=== PATIENT | male | born 1960 | race Hispanic/Latino ===

== ENCOUNTER 2018-09-21 05:45 | Day surgery (SDC) | payer OTHER ==
[~2018-09-21] VITALS: Ht 170.2 cm; Wt 81.7 kg
--- NOTE | ~2018-09-21 | OR ---
[facility] [place] [facility] [address], [place] [address] Draft DATE OF OPERATION: 09/21/2018 SURGEON: Fareed Harris MD PREOPERATIVE DIAGNOSIS: Rotator cuff tear of left shoulder with biceps tendinosis. POSTOPERATIVE DIAGNOSIS: Rotator cuff tear of left shoulder with biceps tendinosis. PROCEDURE: Left shoulder arthroscopy with subacromial decompression, double row rotator cuff repair and mini open biceps tenodesis with a Hosmer screw. ANESTHESIA: General. SPECIMENS AND COMPLICATIONS: There were no specimens or complications. TOURNIQUET: Not used. BLOOD LOSS: Minimal. WHAT WAS DONE: The patient was taken to the operating room. After anesthesia was induced and the airway secured, the patient was positioned prepped and draped in a modified beach chair position. Left shoulder was prepped and draped and the bony topography was outlined with a skin marking pen. The arthroscope was inserted through the standard posterior portal. An anterior portal was created using a switching stick technique. We then noticed there was a fair amount of fraying of the anterior labrum and a longitudinal split in the biceps. We therefore introduced a vapor electrosurgical device and debrided the biceps tendon and the labral tearing. We then inspected the rotator cuff and there was about a 1-1/2 to 2 cm tear in the supraspinatus at its insertion. The remainder of the cuff looked unremarkable. After a debriding the articular surface, we then removed the scope and the vapor into the subacromial space using auxiliary lateral portal. We did a subacromial bursectomy. PATIENT NAME: VALDEZ ABAD OPERATIVE REPORT DATE OF : 64 REPORT #: [id number] PHYSICIAN: FAREED HARRIS MD PCP: ZAYRA GARCIA MD REPORT IS CONFIDENTIAL AND NOT TO BE RELEASED WITHOUT AUTHORIZATION [facility] [address], [place] [address] Draft We then used a 4 mm tyrell to do a subacromial decompression and remove some bone spurs off the inferior aspect of the AC joint. We then re-examined the apex of the greater tuberosity and remove the soft tissue located there on. We then used the tyrell to gently decorticate the superior aspect of the greater tuberosity. We then placed a 5.5 corkscrew anchor right at the articular margin. Once that was accomplished, we used the scorpion device to place horizontal mattress sutures into the rotator cuff (supraspinatus). We then pulled the rotator cuff back to the area of the decorticated greater tuberosity by tying these sutures down. We then did a double row repair using a single 5.5 SwiveLock to affect the double row repair. The sutures were then cut off. We appeared to have an excellent watertight repair. The subacromial space was irrigated and drained and only arthroscopy portals were closed. We then made an anterior incision over the anterior aspect of the deltoid. Skin was divided sharply. Subcutaneous tissue was bluntly spread. We then used the tip of the glove finger to elevate the deltoid and retractors were placed. We identified the biceps tendon in the bicipital groove and transected it. A whipstitch of #5 FiberWire was then placed through it per the Jarek protocol. We then drilled into the proximal humerus tapped it and secured the long-head of the biceps with a single bioabsorbable screw. The wound was gently irrigated and closed in a standard fashion. The patient was placed in a shoulder abduction brace, awakened and taken to the recovery room where he arrived in stable condition. Counts were correct and antibiotic protocols were followed. MD LIEN Cardona/MODL /[id number] Copies: ~ PATIENT NAME: VALDEZ ABAD OPERATIVE REPORT DATE OF : 64 REPORT #: [id number] PHYSICIAN: FAREED HARRIS MD PCP: ZAYRA GARCIA MD REPORT IS CONFIDENTIAL AND NOT TO BE RELEASED WITHOUT AUTHORIZATION
[~2018-09-21 05:45] MED LIST: CILOXAN5 ML OD
[2018-09-21] MEDS ORDERED: CETIRIZINE HCL10 MG PO (06:00)
[2018-09-21] MEDS ORDERED: SALINE NASAL SP30 ML (06:00)
[2018-09-21] MEDS ORDERED: UREA85 G1 TOP (06:01)
[2018-09-21] MEDS ORDERED: CAPZASIN-HP42.5 GM TOP (06:01)
[2018-09-21] MEDS ORDERED: MELOXICAM15 MG PO (06:02)
--- NOTE | 2018-09-21 09:53 | NUR ---
09/21/18 0953 Ayanna Queen 0942 PT ARRIVED IN PACU ASLEEP WITH ORAL AIRWAY IN PLACE. NO RESPONSE TO VERBAL/TACTILE STIMULI. TRANSPORT GUARDS AT BEDSIDE. 0948 PT AWAKENS. ORAL AIRWAY REMOVED. FALLS BACK TO SLEEP WHEN NOT STIMULATED.
--- NOTE | 2018-09-21 10:50 | NUR ---
LE 1030 PT ARRIVED FROM PACU, DROWSY. REPORT RECVD. PT DENIES PAIN AND NAUSEA THOUGH NOTED FACIAL GRIEMACE PRESENT. VITALS STABLE. FOOD OFFERED, PT DECLINED. GUARDS AT BEDSIDE. 1045 EOCI GUARD OUT TO STATION FOR CRACKER AND JELLO PER PT REQUEST. WATER REFILLED. WILL CONTINUE TO MONITOR.
== END 2018-09-21 11:30 | disposition home or self-care (01) ==
LOC: DS 05:45 → OPS 05:45 → DS 06:45 → OPS 06:45
PROVIDERS: Orthopaedic Surgery
PROC: 0LS40ZZ Reposition Left Upper Arm Tendon, Open Approach (ICD-10-PCS; 2018-09-21)
PROC: 0RBK4ZZ Excision of Left Shoulder Joint, Percutaneous Endoscopic Approach (ICD-10-PCS; principal; 2018-09-21 06:45)
PROC: 0RNK4ZZ Release Left Shoulder Joint, Percutaneous Endoscopic Approach (ICD-10-PCS; 2018-09-21 06:45)
DX: M75.102 Unspecified rotator cuff tear or rupture of left shoulder, not specified as traumatic (principal); M75.22 Bicipital tendinitis, left shoulder; Z79.899 Other long term (current) drug therapy; Z87.891 Personal history of nicotine dependence
CPT/HCPCS: 01630; 64415; 71045; 76942; C1713; J0330; J0690; J0735; J1100; J1885; J2250; J2405; J2704; J2765; J3010; J7120